=== PATIENT | male | born 1970 | race Caucasian/White ===

== ENCOUNTER 2016-09-22 14:15 | Outpatient (RCR) | payer BC ==
[~2016-09-22 14:15] MED LIST: AMOXICILLIN 8751 TAB PO; PHENERGAN W/CO120 M1 PO
== END 2016-11-30 | disposition home or self-care (01) ==
LOC: WSPT
DX: M75.42 Impingement syndrome of left shoulder (principal)

== ENCOUNTER → 2016-09-25 | Outpatient (REF) | LOC: WSOH 13:44 | DX: Z02.89 Encounter for other administrative examinations (principal) ==

== ENCOUNTER 2018-03-29 17:33 | Day surgery (SDC) | payer BC ==
[2018-03-29] VITALS (8 sets, daily range): BP systolic 132–144; BP diastolic 65–84; PULSE 66–78; TEMP 98.2–98.6
[~2018-03-29] VITALS: Ht 185.4 cm; Wt 117.7 kg
[~2018-03-29 17:33] MED LIST changes: -ADDERALL20 MG PO; -COZAAR100 MG PO; -LEXAPRO20 MG PO; -NORVASC 10MG10 MG PO
[2018-03-29] MEDS ORDERED: LEXAPRO20 MG PO (18:10)
[2018-03-29] MEDS ORDERED: NORVASC 10MG10 MG PO (18:10)
[2018-03-29] MEDS ORDERED: COZAAR100 MG PO (18:10)
[2018-03-29] MEDS ORDERED: ADDERALL20 MG PO (18:11)
== END 2018-03-29 22:45 | disposition home or self-care (01) ==
LOC: SDCO 17:33 → SURG 20:24 → SDCO 22:45
DX: K35.80 Unspecified acute appendicitis (principal); I10 Essential (primary) hypertension; F90.9 Attention-deficit hyperactivity disorder, unspecified type
CPT/HCPCS: OP; J2765; J7120

== ENCOUNTER → 2018-03-29 | Outpatient (CLI) | payer BC ==
[~2018-03-29] MED LIST changes: +ADDERALL20 MG PO; +COZAAR100 MG PO; +LEXAPRO20 MG PO; +NORVASC 10MG10 MG PO
[2018-03-29 16:41] LABS: BASO # 0.1 (0.0-0.2); BASO % 0.5 % (0.0-2.0); EOS # 0.2 (0.0-0.7); EOS % 1.7 % (0-4.0); GRAN # 8.2 (1.4-6.5); GRAN % 66.3 % (42.2-75.2); HEMATOCRIT 43.7 % (42.0-52.0); HEMOGLOBIN 15.1 g/dl (13.5-18.0); LYMPH # 3.1 (1.2-3.4); LYMPH % 24.7 % (20.0-51.0); MEAN CELL VOLUME 86 fl (80.0-100.0); MEAN CORPUSCULAR HEMOGLOBIN 30 pg (27.0-31.0); MEAN CORPUSCULAR HGB CONC 35 g/dl (33.0-37.0); MEAN PLATELET VOLUME 9.5 fl (7.4-10.4); MONO # 0.8 (0.1-0.6); MONO % 6.5 % (1.7-9.3); PLATELET COUNT 301 K/mm3 (130-400); RED BLOOD COUNT 5.06 M/mm3 (4.20-5.60); REDCELL DISTRIBUTION WIDTH-CV 14.6 % (11.5-14.5)
[2018-03-29 16:56] LABS: ALBUMIN 4.4 gm/dL (3.5-5.0); BILIRUBIN,TOTAL 0.6 mg/dL (0.0-1.0); CALCIUM 9.3 mg/dL (8.4-10.2); CREATININE, serum 0.9 mg/dL (0.66-1.25); TOTAL PROTEIN 7.6 gm/dL (6.4-8.2)
== END ==
LOC: COL.RAD 15:59
PROVIDERS: Family Medicine
DX: K35.80 Unspecified acute appendicitis (principal); M43.06 Spondylolysis, lumbar region; K76.0 Fatty (change of) liver, not elsewhere classified
CPT/HCPCS: J1100; J1885; J2250; J2405; J2704; J3010; Q9967

== ENCOUNTER 2018-06-21 15:00 | Outpatient (RCR) | payer BC ==
[~2018-06-21 15:00] MED LIST changes: +ADDERALL20 MG PO; +COZAAR100 MG PO; +LEXAPRO20 MG PO; +NORVASC 10MG10 MG PO
== END 2018-08-27 | disposition home or self-care (01) ==
LOC: WSPT
DX: M43.07 Spondylolysis, lumbosacral region (principal); Z79.899 Other long term (current) drug therapy; F17.210 Nicotine dependence, cigarettes, uncomplicated

== ENCOUNTER 2020-02-10 15:00 | Outpatient (RCR) | payer BC | END 2020-04-26 | LOC: WSPT | DX: M25.512 Pain in left shoulder (principal) ==